=== PATIENT | female | born 1980 | race Caucasian/White ===

== ENCOUNTER 2018-01-12 18:33 | Emergency (ER) | payer BC, SELFPAY ==
[2018-01-12 18:34] VITALS: BP 148/76; PULSE 94; RESP 16; TEMP 36.6; O2SAT 98; BMI 29.3
[2018-01-12 18:40] VITALS: PULSE 77; RESP 18; O2SAT 100
--- NOTE | 2018-01-12 18:40 | EKG12_ITS ---
Test Reason : PALPS Blood Pressure : / mmHG Vent. Rate : 076 BPM Atrial Rate : 076 BPM P-R Int : 172 ms QRS Dur : 080 ms QT Int : 400 ms P-R-T Axes : 053 027 023 degrees QTc Int : 450 ms Sinus rhythm with marked sinus arrhythmia Otherwise normal ECG Confirmed by KIESHA JEREZ, ADAMA ([id number]), pictures editor YUNIOR HDEZ ([id number] on 01/19/2018 8:58:24 AM Referred By: SUAD Confirmed By:ADAMA POP MD
--- NOTE | 2018-01-12 18:48 | ED.VISSUMM ---
- ER Visit Summary Date of Service: 01/12/18 Chief Complaint: Palpitations History of Present Illness: The patient is a 37 F who presents with palpitations. Palpitations are worse after have any caffeinated beverage i.e. coffee, Pepsi or Coca-Cola. She denies any heat or cold intolerance. She denies weight gain or weight loss. She denies fever, chills night sweats. Denies any ocular, auditory visual symptoms. She denies any respiratory symptoms of dyspnea on exertion, orthopnea or PND. She states when she feels palpitation she has a sense of shortness of breath. She denies any GI or symptoms. She denies any neurologic symptoms. Please read written note for complete detail. Physical Examination: Vital signs are unremarkable. She is a pleasant 37-year-old who appears no distress. HEENT is unremarkable. Heart is regular without murmur, gallop or rub. S1 and S2 are normal. Lungs are clear to auscultation with good movement of air bilaterally. Abdomen is soft nontender bowel sounds are present normal. Patient is alert and oriented ?3. Motor is 5 over 5. Sensory is intact. DTRs are symmetric with no clonus or Babinski sign. Cranial 2 through 12 are intact. Patient is alert and oriented ?3. Motor is 5 over 5. Sensory is intact. DTRs are symmetric with no clonus or Babinski sign. Cranial 2 through 12 are intact. Cerebellar testing is normal. There is no asymmetry, swelling, discoloration, leg vein distention, palpable cords or tenderness along the distribution of the deep venous system. Test Results: EKG is normal with a rate of 76 and respiratory variants. Emergency Department Course and Treatment: Place was placed on the monitor and an EKG was obtained. There is no ectopy. Treatment Plan: Decrease caffeine intake Disposition: Discharged to home with appropriate home-going instructions Impression: Palpitations This note was generated with [employer] dictation software. It may contain incorrect words, spelling, and punctuation that were not noted in review of the chart prior to signing ED Disposition - Plan for ED Patient: Disposition: Home or Assisted Living Chief Complaint: Palpitations Instructions: ED Palpitations Referrals: Care Physician,No Primary [Primary Care Provider] - Cam Nugent MD [STAFF PHYSICIAN] - 10-14 Days if not better
--- NOTE | 2018-01-12 18:52 | ED.DCSUM_ITS ---
- ER Visit Summary Date of Service: 01/12/18 Chief Complaint: Palpitations History of Present Illness: The patient is a 37 F who presents with palpitations. Palpitations are worse after have any caffeinated beverage i.e. coffee, Pepsi or Coca-Cola. She denies any heat or cold intolerance. She denies weight gain or weight loss. She denies fever, chills night sweats. Denies any ocular, auditory visual symptoms. She denies any respiratory symptoms of dyspnea on exertion, orthopnea or PND. She states when she feels palpitation she has a sense of shortness of breath. She denies any GI or symptoms. She denies any neurologic symptoms. Please read written note for complete detail. Physical Examination: Vital signs are unremarkable. She is a pleasant 37-year- old who appears no distress. HEENT is unremarkable. Heart is regular without murmur, gallop or rub. S1 and S2 are normal. Lungs are clear to auscultation with good movement of air bilaterally. Abdomen is soft nontender bowel sounds are present normal. Patient is alert and oriented ?3. Motor is 5 over 5. Sensory is intact. DTRs are symmetric with no clonus or Babinski sign. Cranial 2 through 12 are intact. Patient is alert and oriented ?3. Motor is 5 over 5. Sensory is intact. DTRs are symmetric with no clonus or Babinski sign. Cranial 2 through 12 are intact. Cerebellar testing is normal. There is no asymmetry, swelling, discoloration, leg vein distention, palpable cords or tenderness along the distribution of the deep venous system. Test Results: EKG is normal with a rate of 76 and respiratory variants. Emergency Department Course and Treatment: Place was placed on the monitor and an EKG was obtained. There is no ectopy. Treatment Plan: Decrease caffeine intake Disposition: Discharged to home with appropriate home-going instructions Impression: Palpitations This note was generated with [employer] dictation software. It may contain incorrect words, spelling, and punctuation that were not noted in review of the chart prior to signing ED Disposition - Plan for ED Patient: Disposition: Home or Assisted Living Chief Complaint: Palpitations Instructions: ED Palpitations Referrals: Care Physician,No Primary [Primary Care Provider] - Cam Nugent MD [STAFF PHYSICIAN] - 10-14 Days if not better
[2018-01-12 18:58] VITALS: BP 130/81; PULSE 74; RESP 18; O2SAT 99
== END 2018-01-12 19:01 | disposition home or self-care (01) ==
PROVIDERS: Emergency Provider Emergency Medicine
DX: R00.2 Palpitations (principal); Z79.899 Other long term (current) drug therapy
CPT/HCPCS: 93005; 99282

== ENCOUNTER 2018-09-19 14:20 | Emergency (ER) | payer BC, SELFPAY ==
[2018-09-19 14:21] VITALS: BP 153/76; PULSE 95; RESP 14; TEMP 36.4; O2SAT 100; BMI 26.2
[2018-09-19] MEDS: Ondansetron 4 MG/2 ML Vial IV (14:50)
--- NOTE | 2018-09-19 15:49 | ED.VISSUMM ---
- ER Visit Summary Date of Service: 09/19/18 Chief Complaint: Abdominal pain with nausea, vomiting diarrhea. History of Present Illness: The patient is a 37 F who has no sniffing a past medical history presents with nausea, vomiting diarrhea and abdominal pain. She denies hematemesis, melena hematochezia. She does complain of dry mouth, thirst, orthostatic symptoms and decreased urine output. She urinated prior to arrival and states it was dark. She denies fever, chills or night sweats. She is presently on Macrobid for urinary tract infection. She denies back or flank pain. She denies cardiac or respiratory symptoms. She denies myalgias arthralgias. She denies rash and has not noted any lesions. Physical Examination: Vital signs are remarkable blood pressure of 156/76. She not tachycardic. HEENT exam is remarkable dry mucosa. Heart is regular without murmur, gallop or rub. Lungs are clear to auscultation with good movement of air bilaterally. Abdomen is soft nontender. Bowel sounds are diminished. There is no hepatosplenomegaly. There is no CVA tenderness noted. There is no umbilical or inguinal hernia noted. There is no skin lesion. Neuro exam is nonfocal. Test Results: None Emergency Department Course and Treatment: IV Zofran and normal saline. Patient was reassessed at 1545. Her nausea resolved. She was given a glass of sami tory to determine if she can pass a p.o. challenge. Treatment Plan: If patient passes p.o. challenge will discharge to home with prescription for Zofran and Imodium for diarrhea Disposition: Pending reevaluation after p.o. challenge Impression: Abdominal pain with nausea, vomiting diarrhea Mild dehydration This note was generated with [employer] dictation software. It may contain incorrect words, spelling, and punctuation that were not noted in review of the chart prior to signing ED Disposition - Plan for ED Patient: Disposition: Home or Assisted Living Chief Complaint: Nausea/Vomiting Instructions: ED Vomiting Diarrhea Nonspecific Ad Prescriptions: Ondansetron [Zofran Odt] 4 mg PO Q8H PRN PRN #10 tab PRN Reason: Nausea Referrals: Care Physician,No Primary [Primary Care Provider] - Cam Nugent MD [STAFF PHYSICIAN] - Additional Instructions: Since you do not have a physician you were referred to Dr. Cam Nugent.
[2018-09-19 16:16] VITALS: BP 109/57; PULSE 72; RESP 16; O2SAT 98
== END 2018-09-19 16:17 | disposition home or self-care (01) ==
PROVIDERS: Emergency Provider Emergency Medicine
DX: R10.9 Unspecified abdominal pain (principal); E86.0 Dehydration; N39.0 Urinary tract infection, site not specified; R19.7 Diarrhea, unspecified; R11.2 Nausea with vomiting, unspecified; E66.9 Obesity, unspecified; Z72.0 Tobacco use
CPT/HCPCS: 96374; 99283; A4216; J2405

== ENCOUNTER → 2018-09-21 13:19 | Outpatient (CLI) | payer BC, SELFPAY ==
[2018-09-19 14:21] VITALS: BMI 26.2
[2018-09-21 15:33] LABS: Chlamydia Trachomatis by PCR Negative (Negative); Neisserai gonorrhoeae by PCR Negative (Negative); Probe Check PASS; Sample Adequacy Control PASS; Specimen Processing Control PASS
[2018-09-23 07:50] LABS: HPV Reflexed? NOT INDICATED
--- OUTSIDE RECORDS SUMMARY | 2018-11-07 17:47 | XMS RPT_ITS ---
:1980 Author Organization [facility] Care Team Providers Name Role Phone Halina Aysha Attending Unavailable Primay Care Physicia, No Primary Care Unavailable Primay Care Physicia, No Primary Care Unavailable Coleman, Fantasma Attending Unavailable Primay Care Physicia, No Primary Care Unavailable Coleman, Fantasma Attending Unavailable Mohit Leavitt S Admitting Unavailable Mohit Leavitt Attending Unavailable Osmin Mazariegos Primary Care Unavailable Tommie Beltran Admitting Unavailable Tommie Beltran Attending Unavailable Osmin Mazariegos Primary Care Unavailable Tommie Beltran Admitting Unavailable Tommie Beltran Attending Unavailable Osmin Mazariegos Primary Care Unavailable PROBLEMS PROBLEMS DATE TYPE CONDITION / CODE ATTENDING STATUS SOURCE 09/21/2018 Unknown Z12.4 - Encounter Aysha Meade Active [facility] for screening for Community malignant neoplasm [facility] cervix / Repository Z12.4(ICD-10) 09/21/2018 Unknown Z11.3 - Encounter Aysha Meade Active [facility] for screening for Community infections with a [facility] Repository sexual mode of transmission / Z11.3(ICD-10) PROCEDURES PROCEDURES No Procedure Records FoundRESULTS RESULTS CT/NG [facility] BY PCR Collected: 09/21/2018 Status: F Source: [place] 9:15 AM [facility] REPOSITORY TYPE CODE TESTS RESULT OUT OF RANGE REFERENCE UNITS LAB L8200.2100 Negative Normal Chlam Negative Trac PCR LAB L8200.2200 Negative Normal NG by Negative PCR Performed By: #### L8200.2000 #### [facility] [address] [place], [address] PAP I-G W/RFX HRHPV Collected: 09/21/2018 Status: F Source: [place] 9:15 AM [facility] REPOSITORY Order Comment: CYTOLOGY INFORMATION: - CLINICAL INFORMATION: PATCH - DATE LMP/MENOPAUSE: 09/07/18 LMP - COLLECTION VIAL: Thin Prep Vial - YARD CONDUCTOR SOURCE: CERVICAL/ENDOCERVICAL - COLLECTION TECHNIQUE: BRUSH/SPATULA Specimen Comment: [id number] Specimen Comment: Source.............Cervix;Endocervix Specimen Comment: LMP / Prev Treat...[id number] Specimen Comment: Dates / Results....PATCH Specimen Comment: Other..............Other Specimen Comment: No. of containers..01 ThinPrep Vial TYPE CODE TESTS RESULT OUT OF RANGE REFERENCE UNITS LAB L7400.0800 . Normal DIAGN Comment Result Comment: NEGATIVE FOR INTRAEPITHELIAL LESION AND MALIGNANCY. LAB L7400.0900 . Normal ADEQ Comment Result Comment: Satisfactory for evaluation. Endocervical and/or squamous metaplastic cells (endocervical component) are present. LAB L7400.1400 . Normal PERFORM Comment Result Comment: Luis Pacheco, Internet Ecommerce Specialist (ASCP) LAB L7400.2575 . Normal TEST METHOD Comment Result Comment: This liquid based ThinPrep(R) pap test was screened with the use of an image guided system. LAB L7400.2600 . Normal . COMM LAB L7400.2700 . Normal PAPSMR Comment Result Comment: The Pap smear is a screening test designed to aid in the detection of premalignant and malignant conditions of the uterine cervix. It is not a diagnostic procedure and should not be used as the sole means of detecting cervical cancer. Both false-positive and false-negative reports do occur. LAB L7400.2800 . Normal HPV RFLX Comment Result Comment: The HPV DNA reflex criteria were not met with this specimen result therefore, no HPV testing was performed. Performed at: [facility] [address] [place] [id number] Pocket Setter Lockstitch: Diana Johnson MD, Phone: [phone] Performed By: #### L7400.0350 #### [facility] (refer to report for specific site) refer to report for address and phone number EMERGENCY DEPARTMENT Observed: 09/19/2018 Status: F Source: [place] SUMMARY 4:02 PM [facility] REPOSITORY [facility] Medical Records Department [address] [place] [address] Emergency Department Summary 09/19/18 1549 MR#: [id number] Acct: [id number] Name: JANET HERNANDEZ Rep #: [id number] : 1980 37 From: Fantasma Coleman MD PCP: Care Physician, No Primary Status: REG ER - ER Visit Summary Date of Service: 09/19/18 Chief Complaint: Abdominal pain with nausea, vomiting diarrhea. History of Present Illness: The patient is a 37 F who has no sniffing a past medical history presents with nausea, vomiting diarrhea and abdominal pain. She denies hematemesis, melena hematochezia. She does complain of dry mouth, thirst, orthostatic symptoms and decreased urine output. She urinated prior to arrival and states it was dark. She denies fever, chills or night sweats. She is presently on Macrobid for urinary tract infection. She denies back or flank pain. She denies cardiac or respiratory symptoms. She denies myalgias arthralgias. She denies rash and has not noted any lesions. Physical Examination: Vital signs are remarkable blood pressure of 156/76. She not tachycardic. HEENT exam is remarkable dry mucosa. Heart is regular without murmur, gallop or rub. Lungs are clear to auscultation with good movement of air bilaterally. Abdomen is soft nontender. Bowel sounds are diminished. There is no hepatosplenomegaly. There is no CVA tenderness noted. There is no umbilical or inguinal hernia noted. There is no skin lesion. Neuro exam is nonfocal. Test Results: None Emergency Department Course and Treatment: IV Zofran and normal saline. Patient was reassessed at 1545. Her nausea resolved. She was given a glass of sami tory to determine if she can pass a p.o. challenge. Treatment Plan: If patient passes p.o. challenge will discharge to home with prescription for Zofran and Imodium for diarrhea Disposition: Pending reevaluation after p.o. challenge Impression: Abdominal pain with nausea, vomiting diarrhea Mild dehydration This note was generated with Nativo dictation software. It may contain incorrect words, spelling, and punctuation that were not noted in review of the chart prior to signing ED Disposition - Plan for ED Patient: Disposition: Home or Assisted Living Chief Complaint: Nausea/Vomiting Instructions: ED Vomiting Diarrhea Nonspecific Ad Prescriptions: Ondansetron [Zofran Odt] 4 mg PO Q8H PRN PRN #10 tab PRN Reason: Nausea Referrals: Care Physician,No Primary [Primary Care Provider] - Cam Nugent MD [STAFF PHYSICIAN] - Additional Instructions: Since you do not have a physician you were referred to Dr. Cam Nugent. What to do if you have Problems For any increased pain, shortness of breath, bleeding, nausea or vomiting, chest pain, or any unexpected problems, contact your Primary Care Provider. Call [facility] ([phone]) or report to the closest Emergency Room. Call 911 if necessary. 09/19/18 1602 <Electronically signed by Fantasma Coleman MD> Date Fantasma Coleman MD Cosigner Signature (If Indicated): Date CC: No Primary Care Physician; Cam Nugent MD Observed: 09/17/2018 Status: F Source: [place] 9:00 AM [facility] REPOSITORY Final Report: Light growth of Normal skin pao isolated Performed By: #### [id number] #### [facility] Subsection [address] [place] [address] POC URINALYSIS DIP POC Collected: 09/17/2018 Status: F Source: [place] 8:32 AM [facility] REPOSITORY TYPE CODE TESTS RESULT OUT OF RANGE REFERENCE UNITS LAB CD:[id number] Yellow 2293(LOIN Normal C) POC Color Yellow LAB CD:214091 CLEAR 2955(LOIN C) POC Clarity Abnormal Cloudy LAB CD:148258 Negative 3551(LOIN Normal C) POC Glucose Negative LAB CD:756759 Negative 4053(LOIN Normal C) POC Bilirubin Negative LAB CD:088535 Negative 6003(LOIN Normal C) POC Ketone Negative LAB CD:092793 1.005-1.035 mg/dL 6479(LOIN Normal C) POC Specific [place] >1.030 LAB CD:234679 Negative 6697(LOIN C) POC Blood Abnormal Moderate 2+ LAB CD:406317 5.0-8.0 mg/dL 6769(LOIN Normal C) POC pH 7.0 LAB CD:948236 Negative 7163(LOIN C) POC Protein Abnormal 30mg/dl 1+ LAB CD:688512 0.2-1.0 EU/dL 7345(LOIN Normal C) POC Urobilinogen 0.2 LAB CD:043752 Negative 7607(LOIN Normal C) POC Nitrite Negative LAB CD:680200 Negative 7771(LOIN C) POC Abnormal Leukocyte Moderate 2+ Performed By: #### CD:[id number] #### [facility] POC Subsection [facility] [place] [address] 12 LEAD ELECTROCARDIOGRAM Observed: 01/19/2018 Status: F Source: [place] 8:58 AM [facility] REPOSITORY [facility] Cardiovascular Services [address] [place] [address] 12 Lead EKG 01/12/18 1840 MR#: [id number] Acct: [id number] Name: JANET HERNANDEZ Rep #: [id number] : 1980 37 From: Adrian Lee MD Attending Dr: Status: DEP ER Ordering Dr: Fantasma Coleman MD Date: 01/12/18 Location: ED Sex: F C Admitted: Test Reason : PALPS Blood Pressure : / mmHG Vent. Rate : 076 BPM Atrial Rate : 076 BPM P-R Int : 172 ms QRS Dur : 080 ms QT Int : 400 ms P-R-T Axes : 053 027 023 degrees QTc Int : 450 ms Sinus rhythm with marked sinus arrhythmia Otherwise normal ECG Confirmed by ADRIAN LEE MD ([id number]), visual effects editor YUNIOR HDEZ ([id number]) on 01/19/2018 8:58:24 AM Referred By: SUAD Confirmed By:ADRIAN LEE MD 01/19/18 0858 Date Adrian Lee MD CC: No Primary Care Physician; Fantasma Coleman MD Signed EMERGENCY DEPARTMENT Observed: 01/12/2018 Status: F Source: [place] SUMMARY 6:52 PM [facility] REPOSITORY [facility] Medical Records Department [address] [place] [address] Emergency Department Summary 01/12/18 1848 MR#: [id number] Acct: [id number] Name: JANET HERNANDEZ Rep #: [id number] : 1980 37 From: Fantasma Coleman MD PCP: Care Physician, No Primary Status: PRE ER - ER Visit Summary Date of Service: 01/12/18 Chief Complaint: Palpitations History of Present Illness: The patient is a 37 F who presents with palpitations. Palpitations are worse after have any caffeinated beverage i.e. coffee, Pepsi or Coca-Cola. She denies any heat or cold intolerance. She denies weight gain or weight loss. She denies fever, chills night sweats. Denies any ocular, auditory visual symptoms. She denies any respiratory symptoms of dyspnea on exertion, orthopnea or PND. She states when she feels palpitation she has a sense of shortness of breath. She denies any GI or symptoms. She denies any neurologic symptoms. Please read written note for complete detail. Physical Examination: Vital signs are unremarkable. She is a pleasant 37-year-old who appears no distress. HEENT is unremarkable. Heart is regular without murmur, gallop or rub. S1 and S2 are normal. Lungs are clear to auscultation with good movement of air bilaterally. Abdomen is soft nontender bowel sounds are present normal. Patient is alert and oriented 3. Motor is 5 over 5. Sensory is intact. DTRs are symmetric with no clonus or Babinski sign. Cranial 2 through 12 are intact. Patient is alert and oriented 3. Motor is 5 over 5. Sensory is intact. DTRs are symmetric with no clonus or Babinski sign. Cranial 2 through 12 are intact. Cerebellar testing is normal. There is no asymmetry, swelling, discoloration, leg vein distention, palpable cords or tenderness along the distribution of the deep venous system. Test Results: EKG is normal with a rate of 76 and respiratory variants. Emergency Department Course and Treatment: Place was placed on the monitor and an EKG was obtained. There is no ectopy. Treatment Plan: Decrease caffeine intake Disposition: Discharged to home with appropriate home-going instructions Impression: Palpitations This note was generated with PlotWattation software. It may contain incorrect words, spelling, and punctuation that were not noted in review of the chart prior to signing ED Disposition - Plan for ED Patient: Disposition: Home or Assisted Living Chief Complaint: Palpitations Instructions: ED Palpitations Referrals: Care Physician,No Primary [Primary Care Provider] - Cam Nugent MD [STAFF PHYSICIAN] - 10-14 Days if not better What to do if you have Problems For any increased pain, shortness of breath, bleeding, nausea or vomiting, chest pain, or any unexpected problems, contact your Primary Care Provider. Call [facility] ([phone]) or report to the closest Emergency Room. Call 911 if necessary. 01/12/18 2442 <Electronically signed by Fantasma Coleman MD> Date Fantasma Coleman MD Cosigner Signature (If Indicated): Date CC: No Primary Care Physician; Cam Nugent MD PROGRESS Observed: 11/07/2017 Status: COMPLETED Source: [place] 4:44 PM [facility] REPOSITORY HNO ID: [id number] Author: Marta Young Service: (none) Author Type: Nurse Practitioner Type: Progress Notes Filed: 11/07/2017 4:47 PM Note Text: HPI Pt presents with c/o 5 day hx cough and nasal congestion. States cough is moist, occasionally producing clear mucous. Having coughing fits during the day. Cough is worst at night and keeping pt awake at night. Has been taking OTC day and night cough and cold with minimal improvement of sx. Denies fever, chills, dyspnea, wheezing. Review of Systems Constitutional: Negative for chills and fever. HENT: Positive for congestion. Negative for ear pain and sore throat. Respiratory: Positive for cough and sputum production. Negative for hemoptysis, shortness of breath and wheezing. Cardiovascular: Negative for chest pain. Physical Exam Constitutional: She is oriented to person, place, and time and well-developed, well-nourished, and in no distress. No distress. HENT: Head: Normocephalic. Right Ear: Hearing, tympanic membrane, external ear and ear canal normal. Left Ear: Hearing, tympanic membrane, external ear and ear canal normal. Nose: Rhinorrhea present. Right sinus exhibits no maxillary sinus tenderness and no frontal sinus tenderness. Left sinus exhibits no maxillary sinus tenderness and no frontal sinus tenderness. Mouth/Throat: Uvula is midline, oropharynx is clear and moist and mucous membranes are normal. No oropharyngeal exudate, posterior oropharyngeal edema, posterior oropharyngeal erythema or tonsillar abscesses. Eyes: Conjunctivae are normal. Pupils are equal, round, and reactive to light. Right eye exhibits no discharge. Left eye exhibits no discharge. Neck: Neck supple. Cardiovascular: Normal rate, regular rhythm and normal heart sounds. Exam reveals no gallop and no friction rub. No murmur heard. Pulmonary/Chest: Effort normal and breath sounds normal. No respiratory distress. She has no decreased breath sounds. She has no wheezes. She has no rhonchi. She has no rales. Lymphadenopathy: She has no cervical adenopathy. Neurological: She is alert and oriented to person, place, and time. Skin: Skin is warm and dry. She is not diaphoretic. BP 112/64 (BP Site: Left Arm, BP Position: Sitting, BP Cuff Size: Regular Adult) Pulse 80 Temp 37.2 ?C (98.9 ?F) (Left Tympanic) Resp 20 Wt 64.8 kg (142 lb 12.8 oz) SpO2 98% .Patient presents with: URI PAST MEDICAL HISTORY Diagnosis Date - NEGATIVE MEDICAL HISTORY PAST SURGICAL HISTORY Procedure Laterality Date - APPENDECTOMY ruptured - DELIVERY ONLY , bladder injury - FREEING BOWEL ADHESION,ENTEROLYSIS 11-05-09 with [facility] - RESECT SMALL INTEST,SINGL RESEC/ANAS 11-05-09 with [facility] ALLERGIES Review of patient's allergies indicates no known allergies. MEDICATIONS XULANE 150-35 mcg/24 hr predniSONE (DELTASONE) 20 mg tablet Take 2 tablets by mouth once daily for 4 days. Take daily with food. codeine-guaiFENesin (ROBITUSSIN AC) 10-100 mg/5 mL syrup Take 5-10 mL by mouth four times daily as needed for Cough for up to 4 days. May cause drowsiness. guaiFENesin (MUCINEX) 600 mg 12 hr tablet Take 2 tablets by mouth once daily. fluconazole (DIFLUCAN) 150 mg tablet Take 1 tablet now for yeast infections symptoms. May repeat upon completion of antibiotic course if still symptomatic No family history on file. Social History Substance Use Topics - Smoking status: Former Smoker - Smokeless tobacco: Not on file - Alcohol use Not on file ASSESSMENT/PLAN: 1. Viral URI with cough - ICD9: 465.9, ICD10: J06.9, B97.89 (primary diagnosis) - Discussed viral etiology and rationale for treatment. - Symptomatic treatment with prn analgesia - Supportive care with fluids and rest - Follow up in 3-5 days if symptoms persist or sooner if worsening of symptoms - PREDNISONE 20 MG TABLET - GUAIFENESIN ER 600 MG TABLET, EXTENDED RELEASE 12 HR 2. Cough - ICD9: 786.2, ICD10: R05 - CODEINE 10 MG-GUAIFENESIN 100 MG/5 ML ORAL LIQUID The patient is instructed to return or seek emergency treatment if symptoms become worse or with any acute change in condition. The patient verbalizes understanding and is in agreement with plan of care. LIZZ Brady Observed: 11/07/2017 Status: COMPLETED Source: [place] 3:15 PM [facility] REPOSITORY Office Visit (WSTR) MARYJANET ([id number]) 1980 F Date Time Provider Department 11/07/17 3:15 PM MARTA YOUNG WSTR During your visit today, we recorded the following information about you: Temperature Pulse Respiration Blood pressure 98.9 degrees 80/minute 20/minute 112/64 Weight 64.8 kg Marta Young CNP 11/07/2017 4:47 PM Signed HPI Pt presents with c/o 5 day hx cough and nasal congestion. States cough is moist, occasionally producing clear mucous. Having coughing fits during the day. Cough is worst at night and keeping pt awake at night. Has been taking OTC day and night cough and cold with minimal improvement of sx. Denies fever, chills, dyspnea, wheezing. Review of Systems Constitutional: Negative for chills and fever. HENT: Positive for congestion. Negative for ear pain and sore throat. Respiratory: Positive for cough and sputum production. Negative for hemoptysis, shortness of breath and wheezing. Cardiovascular: Negative for chest pain. Physical Exam Constitutional: She is oriented to person, place, and time and well-developed, well-nourished, and in no distress. No distress. HENT: Head: Normocephalic. Right Ear: Hearing, tympanic membrane, external ear and ear canal normal. Left Ear: Hearing, tympanic membrane, external ear and ear canal normal. Nose: Rhinorrhea present. Right sinus exhibits no maxillary sinus tenderness and no frontal sinus tenderness. Left sinus exhibits no maxillary sinus tenderness and no frontal sinus tenderness. Mouth/Throat: Uvula is midline, oropharynx is clear and moist and mucous membranes are normal. No oropharyngeal exudate, posterior oropharyngeal edema, posterior oropharyngeal erythema or tonsillar abscesses. Eyes: Conjunctivae are normal. Pupils are equal, round, and reactive to light. Right eye exhibits no discharge. Left eye exhibits no discharge. Neck: Neck supple. Cardiovascular: Normal rate, regular rhythm and normal heart sounds. Exam reveals no gallop and no friction rub. No murmur heard. Pulmonary/Chest: Effort normal and breath sounds normal. No respiratory distress. She has no decreased breath sounds. She has no wheezes. She has no rhonchi. She has no rales. Lymphadenopathy: She has no cervical adenopathy. Neurological: She is alert and oriented to person, place, and time. Skin: Skin is warm and dry. She is not diaphoretic. BP 112/64 (BP Site: Left Arm, BP Position: Sitting, BP Cuff Size: Regular Adult) Pulse 80 Temp 37.2 ?C (98.9 ?F) (Left Tympanic) Resp 20 Wt 64.8 kg (142 lb 12.8 oz) SpO2 98% .Patient presents with: URI PAST MEDICAL HISTORY Diagnosis Date - NEGATIVE MEDICAL HISTORY PAST SURGICAL HISTORY Procedure Laterality Date - APPENDECTOMY ruptured - DELIVERY ONLY , bladder injury - FREEING BOWEL ADHESION,ENTEROLYSIS 11-05-09 with [facility] - RESECT SMALL INTEST,SINGL RESEC/ANAS 11-05-09 with [facility] ALLERGIES Review of patient's allergies indicates no known allergies. MEDICATIONS XULANE 150-35 mcg/24 hr predniSONE (DELTASONE) 20 mg tablet Take 2 tablets by mouth once daily for 4 days. Take daily with food. codeine-guaiFENesin (ROBITUSSIN AC) 10-100 mg/5 mL syrup Take 5-10 mL by mouth four times daily as needed for Cough for up to 4 days. May cause drowsiness. guaiFENesin (MUCINEX) 600 mg 12 hr tablet Take 2 tablets by mouth once daily. fluconazole (DIFLUCAN) 150 mg tablet Take 1 tablet now for yeast infections symptoms. May repeat upon completion of antibiotic course if still symptomatic No family history on file. Social History Substance Use Topics - Smoking status: Former Smoker - Smokeless tobacco: Not on file - Alcohol use Not on file ASSESSMENT/PLAN: 1. Viral URI with cough - ICD9: 465.9, ICD10: J06.9, B97.89 (primary diagnosis) - Discussed viral etiology and rationale for treatment. - Symptomatic treatment with prn analgesia - Supportive care with fluids and rest - Follow up in 3-5 days if symptoms persist or sooner if worsening of symptoms - PREDNISONE 20 MG TABLET - GUAIFENESIN ER 600 MG TABLET, EXTENDED RELEASE 12 HR 2. Cough - ICD9: 786.2, ICD10: R05 - CODEINE 10 MG-GUAIFENESIN 100 MG/5 ML ORAL LIQUID The patient is instructed to return or seek emergency treatment if symptoms become worse or with any acute change in condition. The patient verbalizes understanding and is in agreement with plan of care. Marta Young CNP Referring Provider: SELF [200] Allergies As of Date: 11/07/2017 (No Known Allergies) Date Reviewed: 11/07/2017 Reviewed by: Janae Veliz Ma - Fully Assessed Reason for Visit: URI [115] Primary Visit Diagnosis:Viral URI with cough [J06.9, B97.89] Other Visit Diagnosis:Cough [R05] Order(s):predniSONE (DELTASONE) 20 mg tabletTake 2 tablets by mouth once daily for 4 days. Take daily with food.Disp: 8 tabletRfl: 0 codeine-guaiFENesin (ROBITUSSIN AC) 10-100 mg/5 mL syrupTake 5-10 mL by mouth four times daily as needed for Cough for up to 4 days. May cause drowsiness.Disp: 120 mLRfl: 0 guaiFENesin (MUCINEX) 600 mg 12 hr tabletTake 2 tablets by mouth once daily.Disp: 30 tabletRfl: 0 Prescriptions as of 11/07/2017 Sig: XULANE 150 MCG-35 MCG/24 HR T* PREDNISONE 20 MG TABLET Take 2 tablets by mouth once * CODEINE 10 MG-GUAIFENESIN 100* Take 5-10 mL by mouth four ti* GUAIFENESIN ER 600 MG TABLET,* Take 2 tablets by mouth once * FLUCONAZOLE 150 MG TABLET Take 1 tablet now for yeast i* Medication notes this encounter FLUCONAZOLE 150 MG TABLET >> Janae Veliz Ma 11/07/2017 3:36 PM >> JANAE VELIZ MA Nov 07, 2017 3:36 PM Therapy complete. Problem List As Of Date 11/07/2017 Noted Resolved Obstetrical Trauma to Bladder [O71.5] INVALID FOR* Obstetrical Trauma [O71.9] INVALID FOR* Prescriptions ordered this encounter Disp Refills Start End PREDNISONE 20 MG TABLET 8 ta* 0 11/07/2017 11/11/2017 Route: ORAL Sig: Take 2 tablets by mouth once daily for 4 days. Take daily with food. CODEINE 10 MG-GUAIFENESIN 100 MG/5 M* 120 * 0 11/07/2017 11/11/2017 Class: Print RX Route: ORAL Sig: Take 5-10 mL by mouth four times daily as needed for Cough for up to 4 days. May cause drowsiness. GUAIFENESIN ER 600 MG TABLET, EXTEND* 30 t* 0 11/07/2017 Route: ORAL Sig: Take 2 tablets by mouth once daily. Letter Text [facility] Hannah Lozano PA [address] [place], [place] [address] 11/07/2017 TO WHOM IT MAY CONCERN: This is to confirm that Janet Hernandez had an appointment and was seen at the [facility] in the Department of Urgent Care by Hannah Lozano PA on 11/07/2017. Sincerely yours, Hannah Lozano PA Encounter Status:Closed by MARTA YOUNG CNP on 11/07/17 ALLERGIES ALLERGIES DATE TYPE / CODE NAME / CODE REACTION SEVERITY SOURCE 09/19/2018 Drug No Known Unknown [facility] Allergy/416 Allergies/[id number] Hospital [id number](SNOM 0388(RXNORM) Repository ED CT) Drug/170431 No Known Zoroastrianism 003(SNOMED Allergies [facility]) System Repository Drug NO KNOWN [facility] Class/93043 ALLERGIES [facility] 1003(SNOMED Repository CT) ENCOUNTERS ENCOUNTERS ADMIT/DISCHARGE ACCOUNT NUMBER ADMITTING ENCOUNTER LOCATION SOURCE CLASS 09/21/2018 [id number] Ambulatory [facility] ding:[facility] Repository 09/19/2018/09/19/20 [id number] Emergency [address] ding:ED Repository 09/17/2018/09/17/[id number] [address] ding:[facility] Repository 09/17/2018/09/17/[id number] [address] ding:CD:1320 [employer] System [id number]: Repository CD:[id number] 7 09/17/[id number] Repository 08/31/2018/08/31/[id number] [address] [facility] ding:CD:1320 [facility] [id number]: Repository CD:[id number] 01/12/2018/01/13/20 [id number] Emergency [place] [address] [place] [address] ding:ED Repository 11/07/2017/11/07/19 [id number] Ambulatory [address] Repository PAYERS PAYERS ENCOUNTER GUARANTOR PAYER SUBSCRIBER SOURCE 09/21/2018 JANET R Primary JANET R [place] [id number] N Insurance:ANTHEMPolic SEFFENSDOB: Counts include 234 beds at the [facility] y Number: [id number], [id number] [place]ository [place] [address]Dlz: Date:1936-20-20[address], [place] () [address]SB: 09/21/2018 Secondary NOT GIVENUNK [place] Insurance:SELF PAY [facility] Number: Effective Repository Date:2018-09-21 09/19/2018 JANET R Primary JANET R [place] [id number] N Insurance:ANTHEMPolic SEFFENSDOB: Counts include 234 beds at the [facility] y Number: [id number], [id number] [place]ository [place] [address]Utx: Date:4643-07-65[address]JA[address], [place] () [address]DF: 09/19/2018 Secondary NOT GIVENUNK [place] Insurance:SELF PAY [facility] Number: Effective Repository Date:2018-09-19 09/17/2018 JANET R Primary JANET R [employer] SEFFENSDOB: Insurance:ANTHEMPolic SEFFENSDOB: [facility] N y Number: Effective [id number] [facility] Date:2018-09-17 [facility] [id number] Name:Aramis [facility] [address]Gcr: BETZY GREEN [address]Lft: [id number]: ([phone]) (HP) [phone] (HP) (WP) 09/17/2018 JANET James SEFFENSDOB: Insurance:ANTHEMPolic SEFFENSDOB: [facility] N y Number: Effective [id number] [facility] Date:2018-09-17 [facility], [id number] Name:Aramis AlfaroPO [facility] [address]Xsp: [id number] [place] [address]Mgb: [id number]: ([phone]) (HP) [phone] (HP) (WP) 09/17/2018 JANET Alvarado SEFFENSDOB: Insurance:AnthemPolic SEFFENSDOB: [facility] N y Number: [id number] [facility] [id number] N [facility], Date:Plan Name:[place], [place] [id number]: [place] [phone]: (HP) (HP) 08/31/2018 JANET Sullivantan SEFFENSDOB: Insurance:ANTHEMPolic SEFFENSDOB: [facility] N y Number: Effective [id number] [facility] Date:2018-08-31 [facility], [id number] [address]Obz: [id number] [place] [address]Efo: [id number]: [phone]) (HP) [phone] (HP) (WP) 01/12/2018 JANET Allison [id number] Insurance:ANTHEMPolic SEFFENSDOB: [facility] y Number: [id number], [id number] [place] [address]Ukc: Date:5946-68-70[address]YTPRIFB, [place] () [address]HZ: 01/12/2018 Secondary NOT GIVENCARLOS Allison Insurance:SELF PAY [facility] Number: Effective Repository Date:2018-01-12
== END ==
PROVIDERS: Visit Provider Obstetrics & Gynecology
DX: Z12.4 Encounter for screening for malignant neoplasm of cervix (principal); Z11.3 Encounter for screening for infections with a predominantly sexual mode of transmission
CPT/HCPCS: 87491; 87591; 88175; G0145

== ENCOUNTER → 2019-09-27 09:51 | Outpatient (CLI) | payer BC, SELFPAY ==
[2019-09-27 15:17] LABS: Chlamydia Trachomatis by PCR Negative (Negative); Neisserai gonorrhoeae by PCR Negative (Negative); Probe Check PASS; Sample Adequacy Control PASS; Specimen Processing Control PASS
[2019-09-30 03:06] LABS: Age Gdln ACOG Testing 30-65 (.)
[2019-09-30 16:37] LABS: HPV APTIMA, High Risk Negative (Negative)
[2019-09-30 16:38] LABS: HPV Reflexed? YES, CHARGE PATIENT
== END ==
PROVIDERS: Visit Provider Obstetrics & Gynecology
DX: Z12.4 Encounter for screening for malignant neoplasm of cervix (principal); Z11.3 Encounter for screening for infections with a predominantly sexual mode of transmission
CPT/HCPCS: 87491; 87591; 87624; 88175; G0145

== ENCOUNTER → 2019-10-18 16:09 | Outpatient (CLI) | payer BC, SELFPAY ==
[2019-10-20 16:08] LABS: Endomysial Antibody IgA Negative (Negative)
[2019-10-20 17:37] LABS: Immunoglobulin A 251 mg/dL (87-352); t-Transglutaminase IgA <2 U/mL (0-3)
== END ==
PROVIDERS: Family Provider Internal Medicine; PCP Internal Medicine; Referring Provider Internal Medicine Gastroenterology; Visit Provider Internal Medicine Gastroenterology
DX: R19.7 Diarrhea, unspecified (principal)
CPT/HCPCS: 36415; 82784; 83516; 86140; 86255

== ENCOUNTER → 2021-02-21 11:42 | Outpatient (CLI) | payer MEDICAID, SELFPAY ==
[2021-02-23 03:07] LABS: Chlamydia By Nucleic Acid AMP Negative (Negative)
[2021-02-23 09:32] LABS: Gonococcus By Nucleic Acid AMP Negative (Negative)
[2021-02-25 17:17] LABS: HPV APTIMA, High Risk Negative (Negative)
== END ==
PROVIDERS: PCP Internal Medicine; Visit Provider Student in an Organized Health Care Education/Training Program
DX: Z12.4 Encounter for screening for malignant neoplasm of cervix (principal); Z11.3 Encounter for screening for infections with a predominantly sexual mode of transmission
CPT/HCPCS: 87491; 87591; 87624; 88175; G0145

== ENCOUNTER → 2021-09-02 | Outpatient (CLI) | payer MEDICAID, SELFPAY | END | disposition home or self-care (01) | LOC: LABSPEC 10:02 | PROVIDERS: PCP Internal Medicine; Visit Provider Student in an Organized Health Care Education/Training Program | DX: N93.0 Postcoital and contact bleeding (principal); Z11.3 Encounter for screening for infections with a predominantly sexual mode of transmission ==

== ENCOUNTER → 2022-02-11 | Outpatient (CLI) | payer MEDICAID, SELFPAY ==
[2022-02-14 00:07] LABS: Chlamydia By Nucleic Acid AMP Negative (Negative)
[2022-02-14 08:38] LABS: Gonococcus By Nucleic Acid AMP Negative (Negative)
[2022-02-17 17:14] LABS: HPV APTIMA, High Risk Negative (Negative)
== END | disposition home or self-care (01) ==
PROVIDERS: PCP Internal Medicine; Visit Provider Student in an Organized Health Care Education/Training Program
DX: Z12.4 Encounter for screening for malignant neoplasm of cervix (principal); Z11.3 Encounter for screening for infections with a predominantly sexual mode of transmission
CPT/HCPCS: 87491; 87591; 87624; 88175; G0145